=== PATIENT | female | born 1945 | race African-American/Black ===

== ENCOUNTER 2017-05-19 09:52 | Emergency (ER) | payer MEDICARE ==
[~2017-05-19] VITALS: Ht 157.5 cm; Wt 108.9 kg
[2017-05-19 10:17] VITALS: BP 214/100
[2017-05-19] MEDS ORDERED: LIDOCAINE (700MG/PATCH) PATCH. TD ONE (10:30)
--- NOTE | 2017-05-19 10:33 | PHYS DOC ---
Past Medical History Past Medical History: CAD, Hypertension, MO Past Surgical History: Appendectomy, Cholecystectomy, , Hysterectomy, Other Additional Past Surgical Histo: cardiac stent Alcohol Use: Occasionally Drug Use: None Adult General Chief Complaint Chief Complaint: R shoulder pain HPI HPI Patient is a 72 year old female who presents with right shoulder pain. Patient states she recently traveled and developed the pain in her arm and it has progressed to now it hurts all the time, worse with movement. No falls or trauma , no prior similar symptoms. She taken ibuprofen without relief of symptoms. No fevers, no history of blood clots. Denies chest pain or shortness of breath Review of Systems Review of Systems Constitutional: Denies fever or chills [] Eyes: Denies change in visual acuity, redness, or eye pain [] HENT: Denies nasal congestion or sore throat [] Respiratory: Denies cough or shortness of breath [] Cardiovascular: denies chest pain GI: Denies abdominal pain, nausea, vomiting, bloody stools or diarrhea [] : Denies dysuria or hematuria [] Musculoskeletal: Per history of present illness Integument: Denies rash or skin lesions [] Neurologic: Denies headache, focal weakness or sensory changes [] Current Medications Current Medications Current Medications Medications (Trade) Dose Ordered Sig/Alfonzo Start Time Stop Time Status Last Admin Dose Admin Lidocaine (Lidoderm) 1 patch 1X ONCE 05/19/17 10:30 05/19/17 10:31 DC 05/19/17 10:37 1 PATCH Allergies Allergies Allergies Coded Allergies Type Severity Reaction Last Updated Verified No Known Drug Allergies 05/19/17 No Physical Exam Physical Exam Constitutional: Well developed, well nourished, no acute distress, non-toxic appearance. [] HENT: Normocephalic, atraumatic, bilateral external ears normal, oropharynx moist, no oral exudates, nose normal. [] Eyes: PERRLA, EOMI, conjunctiva normal, no discharge. [] Neck: Normal range of motion, no tenderness, supple, no stridor. [] Cardiovascular:Heart rate regular with regular rhythm, no murmur [] Lungs & Thorax: Bilateral breath sounds clear to auscultation [] Abdomen: soft, no tenderness, no masses, no pulsatile masses. [] Skin: Warm, dry, no erythema, no rash. [] Back: No tenderness, no CVA tenderness. [] Extremities: R shoulder appears deformed compared to left due to way pt is holding her arm, but no signs of dislocation. ttp in anterior shoulder joint, no erythema or increased warmth, passive rom intact, normal distal sensory, arm normal temp Neurologic: Alert and oriented X 3, normal motor function, normal sensory function, no focal deficits noted. [] Psychologic: Affect normal, judgement normal, mood normal. [] Current Patient Data Vital Signs Vital Signs Date Time Temp Pulse Resp B/P (MAP) Pulse Ox O2 Delivery O2 Flow Rate FiO2 05/19/17 10:17 97.8 90 20 99 Room Air 97.8 EKG EKG [] Radiology/Procedures Radiology/Procedures XR R shoulder: 3 views right shoulder: History: Pain for one week Internal and externally rotated AP views of the right shoulder were obtained as well as a Y view The visualized osseous structures appear normal. The glenohumeral relationship is normal. Impression: No acute findings. [] Course & Med Decision Making Course & Med Decision Making Pertinent Labs and Imaging studies reviewed. (See chart for details) Pt given lidoderm patch, XRay negative for acute finding. pt will be given sling, per her request, but I instructed the patient that she must remove it several times per day, perform pendulum swings. She also was prescribed prednisone for 5 days, Lidoderm patches. Patient is to follow-up with primary care physician and strict return precautions were given. Dragon Disclaimer Dragon Disclaimer This electronic medical record was generated, in whole or in part, using a voice recognition dictation system. Departure Departure Impression: Primary Impression: Bursitis of right shoulder Disposition: HOME, SELF-CARE Condition: IMPROVED Referrals: UNKNOWN PCP NAME (PCP) Patient Instructions: Bursitis Scripts Prednisone (PREDNISONE) 20 Mg Tablet 2 TAB PO DAILY, #10 TAB Prov: JENS WOLFE MD 05/19/17 [Lidoderm 5% patch] No Conflict Check 1 PATCH TOP PRN Q12HR Y for PAIN, #5 PATCH wear for 12 hours, remove for 12 hours Prov: JENS WOLFE MD 05/19/17 JENS WOLFE MD May 19, 2017 10:33
--- NOTE | 2017-05-19 11:27 | RAD ---
3 views right shoulder: History: Pain for one week Internal and externally rotated AP views of the right shoulder were obtained as well as a Y view The visualized osseous structures appear normal. The glenohumeral relationship is normal. Impression: No acute findings.
[2017-05-19] MEDS ORDERED: PRED20TA PO (11:56)
[2017-05-19] MEDS ORDERED: Lidoderm 5% patch TOP (11:56)
== END 2017-05-19 12:10 | disposition home or self-care (01) ==
LOC: ER 09:52
DX: M75.51 Bursitis of right shoulder (principal); I10 Essential (primary) hypertension; I25.10 Atherosclerotic heart disease of native coronary artery without angina pectoris; Z95.5 Presence of coronary angioplasty implant and graft; Z90.710 Acquired absence of both cervix and uterus; I25.2 Old myocardial infarction
CPT/HCPCS: 73030; 99284